=== PATIENT | female | born 1985 | race American Indian/Alaskan Native ===

== ENCOUNTER 2020-12-28 02:25 | Emergency (ER) | payer MEDICAID ==
[2020-12-28] MEDS ORDERED: ALBUTEROL 2.5 MG/3 ML NEBU IH ONE (03:24)
[2020-12-28] MEDS ORDERED: methylPREDNISolone Sod Succinate 125 MG/2 ML INJ IV ONE (03:24)
[2020-12-28] MEDS ORDERED: IPRATROPIUM 0.02% NEBU 2.5 ML IH ONE (03:24)
[2020-12-28] MEDS ORDERED: IPRATROPIUM/ALBUTEROL SULFATE 3 ML AMPUL.NEB IH ONE (03:25)
[2020-12-28 03:36] LABS: Basophils % (Auto) 0.4 % (0.0-1.8); Eosinophils # (Auto) 0.5 K/mm3 (0.0-0.4); Eosinophils % (Auto) 4.4 % (0.0-4.3); Hematocrit 37.4 % (30.3-42.9); Hemoglobin 12.2 gm/dl (10.1-14.3); Lymphocytes # (Auto) 2.7 K/mm3 (1.2-5.4); Lymphocytes % (Auto) 22.2 % (13.4-35.0); Mean Corpuscular HGB Conc 33 % (30-34); Mean Corpuscular Volume 85 fl (79-97); Monocytes # (Auto) 0.7 K/mm3 (0.0-0.8); Monocytes % (Auto) 5.3 % (0.0-7.3); Platelet Count 285 K/mm3 (140-440); Red Cell Distribution Width 13.3 % (13.2-15.2)
--- NOTE | 2020-12-28 03:37 | Emergency Department Report ---
ED Shortness of Breath HPI - General Chief Complaint: Dyspnea/Respdistress Stated Complaint: ASTHMA/TROUBLE BREATHING Time Seen by Provider: 12/28/20 03:24 Source: patient Mode of arrival: Ambulatory Limitations: No Limitations - History of Present Illness Initial Comments: Patient is a 35-year-old female who presents emergency room with complaints of chest pain shortness of breath. Patient states her symptoms are worsening. Patient states that her symptoms been for 3 days. Patient states that her symptoms are severe. Patient states that she has a history of asthma. Patient dates she is using her asthma for the past 3 days nonstop. Patient states there is no relief. Patient states her shortness of breath is better with rest and worse with exertion. Patient states that her chest pain is bilateral and is a 8 out of 10. Patient states that her chest pain is better with rest. Patient states her chest pain is worse with cough, palpation and movement. Patient states that her chest pain is a tightness and a sharp pain at times. Patient denies fever and chills. Patient denies sputum production. Patient denies recent travel. Patient denies recent international travel. Patient denies exposure to the novel coronavirus. Patient denies sick contacts. Patient denies fever and chills. Patient denies loss of smell. Patient denies diarrhea. Patient denies coming in contact with anybody with symptoms of the novel coronavirus. MD Complaint: shortness of breath, chest pain -: Sudden Severity: severe Pain Scale: 8 Consistency: constant Improves With: rest Worsens With: exertion Known History Of: asthma Associated Symptoms: chest pain Treatments Prior to Arrival: bronchodilator - Related Data Home Oxygen Therapy: No Previous Rx's Medication Instructions Recorded Last Taken Type Albuterol Mdi (or & Nicu Only) 2 puff IH QID PRN #8.5 gram 12/28/20 Unknown Rx [ProAir HFA Inhaler] methylPREDNISolone [Medrol 4MG 4 mg PO DAILY 6 Days #1 tab.ds.pk 12/28/20 Unknown Rx DOSEPAK (21 tabs)] Allergies Allergy/AdvReac Type Severity Reaction Status Date / Time No Known Allergies Allergy Verified 12/28/20 06:15 ED Review of Systems ROS: Stated complaint: ASTHMA/TROUBLE BREATHING Other details as noted in HPI Constitutional: denies: chills, fever Eyes: denies: eye pain, eye discharge, vision change ENT: denies: ear pain, throat pain Respiratory: see HPI, cough, shortness of breath, wheezing Cardiovascular: as per HPI, chest pain. denies: palpitations Endocrine: no symptoms reported Gastrointestinal: denies: abdominal pain, nausea, diarrhea Genitourinary: denies: urgency, dysuria, discharge Musculoskeletal: denies: back pain, joint swelling, arthralgia Skin: denies: rash, lesions Neurological: denies: headache, weakness, paresthesias Psychiatric: denies: anxiety, depression Hematological/Lymphatic: denies: easy bleeding, easy bruising ED Past Medical Hx - Past Medical History Previous Medical History?: Yes Hx Asthma: Yes - Surgical History Past Surgical History?: Yes Additional Surgical History: hernia - Family History Family history: no significant - Social History Smoking Status: Former Smoker Substance Use Type: Alcohol - Medications Home Medications: Home Medications Medication Instructions Recorded Confirmed Last Taken Type Albuterol Mdi (or & Nicu Only) 2 puff IH QID PRN #8.5 gram 12/28/20 Unknown Rx [ProAir HFA Inhaler] methylPREDNISolone [Medrol 4MG 4 mg PO DAILY 6 Days #1 tab.ds.pk 12/28/20 Unknown Rx DOSEPAK (21 tabs)] ED Physical Exam - General Limitations: No Limitations General appearance: alert, in no apparent distress - Head Head exam: Present: atraumatic, normocephalic - Eye Eye exam: Present: normal appearance - ENT ENT exam: Present: mucous membranes moist - Neck Neck exam: Present: normal inspection - Respiratory Respiratory exam: Present: wheezes, decreased breath sounds. Absent: respiratory distress - Cardiovascular Cardiovascular Exam: Present: regular rate, normal rhythm. Absent: systolic murmur, diastolic murmur, rubs, gallop - GI/Abdominal GI/Abdominal exam: Present: soft, normal bowel sounds - Extremities Exam Extremities exam: Present: normal inspection - Back Exam Back exam: Present: normal inspection - Neurological Exam Neurological exam: Present: alert, oriented X3 - Psychiatric Psychiatric exam: Present: normal affect, normal mood - Skin Skin exam: Present: warm, dry, intact, normal color. Absent: rash ED Course Vital Signs 12/28/20 12/28/20 02:28 04:19 Temperature 97.9 F Pulse Rate 100 H Pulse Rate [ 96 H Bilateral] Respiratory 18 Rate Respiratory 26 H Rate [Bilateral ] Blood Pressure 112/61 O2 Sat by Pulse 100 Oximetry - Reevaluation(s) Reevaluation #1: Patient states he is feeling much better. Patient's lung sounds are clear. Patient is not coughing. Patient not having any work to breathe. I discussed all results and clinical findings with patient. I discussed plan of care with patient. Patient agrees with plan of care. Patient is stable for discharge. Patient will be discharged home. Patient given discharge instructions. Patient voiced understanding of discharge instructions. 12/28/20 05:01 ED Medical Decision Making - Lab Data Result diagrams: 12/28/20 03:28 12/28/20 03:28 - Radiology Data Radiology results: report reviewed, image reviewed interpreted by me: Chest x-ray: No pneumonia, no pneumothorax, no foreign body, no osseous findings, no acute findings CHEST 1 VIEW, 12/28/2020 2:41 AM CLINICAL INFORMATION/INDICATION: Shortness of breath COMPARISON: None. FINDINGS: SUPPORT DEVICES: None. HEART: The cardiac silhouette is normal in size. LUNGS/PLEURA: The lungs are clear of focal airspace disease or significant pleural effusion. ADDITIONAL FINDINGS: No additional acute findings. IMPRESSION: 1. No evidence of acute cardiopulmonary process. - Medical Decision Making Patient is a 35-year-old female who presents emergency room with complaints of asthmatic sounds, cough breathing and chest pain. Patient is worsening. Patient is in her albuterol per day. Patient had labs done which were essentially unremarkable patient had chest x-ray which was negative for acute fi nding the patient was given a DuoNeb and Solu-Medrol and the patient responded well. Patient symptoms were essentially resolved with treatment. Patient states she felt better after the treatment. Patient is stable for discharge. Patient not require inpatient or further emergency medical services. Patient will be discharged home with a steroid pack and albuterol inhaler. - Differential Diagnosis Asthma exacerbation, pneumonia, bronchitis, cough, chest pain, SOB Critical care attestation.: If time is entered above; I have spent that time in minutes in the direct care of this critically ill patient, excluding procedure time. ED Disposition Clinical Impression: SOB (shortness of breath), Chest wall pain Asthma exacerbation Qualifiers: Asthma severity: unspecified severity Asthma persistence: unspecified Qualified Code(s): J45.901 - Unspecified asthma with (acute) exacerbation Chest pain Qualifiers: Chest pain type: unspecified Qualified Code(s): R07.9 - Chest pain, unspecified Disposition: TO HOME OR SELFCARE Is pt being admited?: No Does the pt Need Aspirin: No Condition: Stable Instructions: Nonspecific Chest Pain, Adult, Shortness of Breath, Adult, Asthma, Adult, [id number], Asthma Attack Prevention, Adult Additional Instructions: Patient to follow-up with primary care in 2 to 3 days. Patient to follow-up with communications media professor in 2 to 3 days. Patient to rest. Patient to increase water. Patient to avoid strenuous exercise or heavy lifting until cleared by communications media professor and primary care. Patient to take Tylenol or ibuprofen as needed for pain. Patient to take meds as directed. Patient to return to the ER if condition worsens, changes or new symptoms arise. Prescriptions: methylPREDNISolone [Medrol 4MG DOSEPAK (21 tabs)] 4 mg PO DAILY 6 Days #1 tab.ds.pk Albuterol Mdi (or & Nicu Only) [ProAir HFA Inhaler] 2 puff IH QID PRN #8.5 gram PRN Reason: Shortness Of Breath Referrals: NICOLASA CARABJAL MD [Staff Physician] - 2-3 Days ELENA WARD MD [Staff Physician] - 2-3 Days Time of Disposition: 05:35
[2020-12-28 03:58] LABS: Alanine Aminotransferase 11 units/L (7-56); Blood Urea Nitrogen 8 mg/dL (7-17); Hemolysis Index 5
[2020-12-28 04:01] LABS: BUN/Creatinine Ratio 11
--- NOTE | 2020-12-28 04:06 | XRay Report ---
CHEST 1 VIEW, 12/28/2020 2:41 AM CLINICAL INFORMATION/INDICATION: Shortness of breath COMPARISON: None. FINDINGS: SUPPORT DEVICES: None. HEART: The cardiac silhouette is normal in size. LUNGS/PLEURA: The lungs are clear of focal airspace disease or significant pleural effusion. ADDITIONAL FINDINGS: No additional acute findings. IMPRESSION: 1. No evidence of acute cardiopulmonary process. Signer Name: Angelique Stein MD Signed: 12/28/2020 4:01 AM Workstation Name: [id number]
[2020-12-28] MEDS ORDERED: methylPREDNISolone Sod Succinate 125 MG/2 ML INJ ONE (06:21)
[2020-12-28 06:31] VITALS: BP 130/83
== END 2020-12-28 06:30 | disposition home or self-care (01) ==
LOC: ED 02:25
DX: J45.901 Unspecified asthma with (acute) exacerbation (principal); R06.02 Shortness of breath; R07.89 Other chest pain; Z98.890 Other specified postprocedural states; Z87.891 Personal history of nicotine dependence; Z79.899 Other long term (current) drug therapy
CPT/HCPCS: 36415; 71045; 80053; 85025; 94640; 96374; 99284; J2930; 94644